=== PATIENT | female | born 1995 | race Caucasian/White ===

== ENCOUNTER 2018-01-28 11:22 | Inpatient (IN) | payer OTHER, MEDICAID ==
[2018-01-28] MEDS ORDERED: MISOPROSTOL 200 MCG TAB PR (12:30)
[2018-01-28] MEDS ORDERED: HYDROCODONE/APAP (5/325) TAB PO (12:30)
[2018-01-28] MEDS ORDERED: CARBOPROST 250 MCG INJ IM (12:30)
[2018-01-28] MEDS ORDERED: OXYTOCIN 30 UNITS/LR 500 ML IV (12:30)
[2018-01-28] MEDS ORDERED: IBUPROFEN 600 MG TAB PO (12:30)
[2018-01-28] MEDS ORDERED: METHYLERGONOVINE 0.2 MG INJ IM (12:30)
[2018-01-28] MEDS: LACTATED RINGER'S 1,000 ML IV ×2 (12:38→18:31)
[2018-01-28 13:13] LABS: ADD MAN DIFF? NO
[2018-01-28 13:17] LABS: WHITE BLOOD COUNT 7.6 10^3/ul (4.8-10.8)
[2018-01-28 13:17] LABS: ABNORMAL IP MESSAGE 1; BASOPHILS % 0.5 % (0.0-2.0); EOSINOPHILS % 0.3 % (0.0-7.0); HEMATOCRIT 35.1 % (37.0-47.0); HEMOGLOBIN 11.5 g/dl (12.0-16.0); LYMPHOCYTES # 1.6 10^3/ul (0.8-2.9); LYMPHOCYTES % 20.4 % (15.0-51.0); MEAN CORPUSCULAR HEMOGLOBIN 28.2 pg (29.0-33.0); MEAN CORPUSCULAR HGB CONC 32.8 g/dl (32.0-37.0); MEAN PLATELET VOLUME 13.4 fl (7.4-10.4); MONOCYTE # 0.6 10^3/ul (0.3-0.9); MONOCYTES % 8.4 % (0.0-11.0); NEUTROPHIL # 5.3 10^3/ul (1.6-7.5); NEUTROPHILS % 69.9 % (39.0-77.0); PLATELET COUNT 189 10^3/UL (140-415); RED BLOOD COUNT 4.08 10^6/ul (4.20-5.40); RED CELL DISTRIBUTION WIDTH 14.3 % (11.5-14.5)
[2018-01-28 13:21] LABS: POSITIVE DIFF @See below
[2018-01-28 13:45] LABS: INR 0.87; PROTIME 11.9 Sec (11.9-14.9); PT RATIO 0.9
[2018-01-28 13:46] LABS: PARTIAL THROMBOPLASTIN TIME 26.9 Sec (25.0-35.0)
[2018-01-28] MEDS: MISOPROSTOL 25 MCG CAPSULE PO ×3 (13:49→22:31)
[2018-01-28 14:07] LABS: HEPATITIS B SURFACE ANTIGEN NEGATIVE (NEGATIVE)
[2018-01-28 15:26] LABS: RAPID PLASMA REAGIN NONREACTIVE (NR)
[2018-01-29] MEDS: LACTATED RINGER'S 1,000 ML IV ×7 (00:53→23:35)
[2018-01-29] MEDS: MISOPROSTOL 25 MCG CAPSULE PO (02:46)
[2018-01-29] MEDS ORDERED: FENTAnyl 2MCG/ML-ROPIV 0.2% 100 ML (06:01)
[2018-01-29] MEDS ORDERED: EPHEDrine SULFATE 50 MG/5 ML SYG IV (06:30)
[2018-01-29] MEDS ORDERED: DIPHENHYDRAMINE 50 MG INJ IV (06:30)
[2018-01-29] MEDS ORDERED: NALOXONE (0.4 MG/ML) INJ IV (06:30)
[2018-01-29] MEDS ORDERED: ONDANSETRON 4 MG INJ IV (06:30)
[2018-01-29] MEDS: AMPICILLIN 2 GM/NS (PMX) 100 ML IV (07:46)
[2018-01-29] MEDS: OXYTOCIN 30 UNITS/LR 500 ML IV (09:56)
[2018-01-29] MEDS: AMPICILLIN 1 GM/NS (PMX) 50 ML IV ×5 (11:30→23:35)
[2018-01-29] MEDS: FENTAnyl 2MCG/ML-ROPIV 0.2% 100 ML BAG EPI (17:22)
[2018-01-29 23:26] LABS: ADD MAN DIFF? NO
[2018-01-29 23:34] LABS: ABNORMAL IP MESSAGE 1; BASOPHILS % 0.3 % (0.0-2.0); HEMATOCRIT 35.3 % (37.0-47.0); HEMOGLOBIN 11.6 g/dl (12.0-16.0); LYMPHOCYTES # 1.2 10^3/ul (0.8-2.9); LYMPHOCYTES % 7.6 % (15.0-51.0); MEAN CORPUSCULAR HEMOGLOBIN 28.3 pg (29.0-33.0); MEAN CORPUSCULAR HGB CONC 32.9 g/dl (32.0-37.0); MEAN CORPUSCULAR VOLUME 86.1 fl (82.0-101.0); MEAN PLATELET VOLUME 13.3 fl (7.4-10.4); MONOCYTE # 1.1 10^3/ul (0.3-0.9); MONOCYTES % 7.1 % (0.0-11.0); NEUTROPHIL # 13.5 10^3/ul (1.6-7.5); NEUTROPHILS % 84.2 % (39.0-77.0); PLATELET COUNT 168 10^3/UL (140-415); RED CELL DISTRIBUTION WIDTH 14.3 % (11.5-14.5)
[2018-01-29 23:44] LABS: POSITIVE DIFF @See below
[2018-01-29 23:54] LABS: ALANINE AMINOTRANSFERASE 20 IU/L (13-69); ALBUMIN 3.2 g/dl (3.3-4.9); ALBUMIN/GLOBULIN RATIO 1.06; ALKALINE PHOSPHATASE 225 IU/L (42-121); ANION GAP 16 (8-16); ASPARTATE AMINO TRANSFERASE 16 IU/L (15-46); BILIRUBIN,INDIRECT 0.2 mg/dl (0-1.1); BILIRUBIN,TOTAL 0.2 mg/dl (0.2-1.3); BLOOD UREA NITROGEN 6 mg/dl (7-20); CALCIUM 8.4 mg/dl (8.4-10.2); CARBON DIOXIDE 19 mmol/L (21-31); CHLORIDE 110 mmol/L (97-110); CREATININE 0.64 mg/dl (0.44-1.00); GLUCOSE 91 mg/dl (70-220); POTASSIUM 3.4 mmol/L (3.5-5.1); SODIUM 142 mmol/L (135-144); TOTAL PROTEIN 6.2 g/dl (6.1-8.1); URIC ACID 6.2 mg/dl (3.1-7.9)
[2018-01-29 23:57] LABS: ADD UMIC YES; UR ASCORBIC ACID NEGATIVE (NEGATIVE); UR BILIRUBIN (Dip) NEGATIVE (NEGATIVE); UR BLOOD (Dip) 3+ mg/dL (NEGATIVE); UR CLARITY CLEAR (CLEAR); UR COLOR YELLOW (YELLOW); UR GLUCOSE (Dip) NEGATIVE (NEGATIVE); UR KETONES (Dip) 1+ mg/dL (NEGATIVE); UR LEUKOCYTE ESTERASE (Dip) NEGATIVE Leu/ul (NEGATIVE); UR MUCUS FEW /HPF (NONE SEEN); UR NITRITE (Dip) NEGATIVE (NEGATIVE); UR RBC > 182 /HPF (0-5); UR SPECIFIC GRAVITY (Dip) 1.009 (1.003-1.030); UR TOTAL PROTEIN (Dip) 2+ mg/dl (NEGATIVE); UR UROBILINOGEN (Dip) NEGATIVE (NEGATIVE); UR WBC 11 /HPF (0-5)
[2018-01-30] MEDS: FENTAnyl 2MCG/ML-ROPIV 0.2% 100 ML BAG EPI (01:50)
[2018-01-30] MEDS: LACTATED RINGER'S 1,000 ML IV (02:09)
[2018-01-30] MEDS: ACETAMINOPHEN 325 MG TAB PO (02:49)
[2018-01-30] MEDS: OXYTOCIN 30 UNITS/LR 500 ML IV ×2 (02:54→03:02)
[2018-01-30] MEDS: LIDOCAINE 1% (MPF) 30 ML INJ INJ (03:07)
[2018-01-30] MEDS: GENTAMICIN 120 MG/NS (PMX) 100 ML IVPB (03:40)
[2018-01-30] MEDS ORDERED: MISOPROSTOL 200 MCG TAB PR (05:00)
[2018-01-30] MEDS ORDERED: ACETAMINOPHEN 325 MG TAB PO (05:00)
[2018-01-30] MEDS ORDERED: DIBUCAINE 1% 30 GM OINT PR (05:00)
[2018-01-30] MEDS ORDERED: CARBOPROST 250 MCG INJ IM (05:00)
[2018-01-30] MEDS ORDERED: OXYTOCIN 30 UNITS/LR 500 ML IV (05:00)
[2018-01-30] MEDS: BENZOCAINE 20% 56 ML SPRAY TOP (06:20)
[2018-01-30] MEDS: WITCH HAZEL/GLYCERIN PAD PR (06:20)
[2018-01-30] MEDS: IBUPROFEN 600 MG TAB PO ×4 (06:20→23:59)
[2018-01-30] MEDS: LANOLIN 7 GM TUBE TOP (06:20)
[2018-01-30] MEDS: AMPICILLIN/SULB 3 GM/NS (PMX) 100 ML IVPB ×4 (06:47→23:59)
[2018-01-30] MEDS: HYDROCODONE/APAP (5/325) TAB PO (08:42)
[2018-01-30] MEDS: SENNA/DOCUSATE NA (8.6MG/50MG) TAB PO ×2 (09:00→21:25)
[2018-01-30] MEDS: LACTATED RINGER'S 1,000 ML IV* ×2 (10:00→20:49)
[2018-01-31] MEDS: IBUPROFEN 600 MG TAB PO ×3 (05:43→18:00)
[2018-01-31] MEDS: AMPICILLIN/SULB 3 GM/NS (PMX) 100 ML IVPB ×3 (05:43→18:54)
[2018-01-31 08:00] LABS: ADD MAN DIFF? NO
[2018-01-31 08:02] LABS: WHITE BLOOD COUNT 14.2 10^3/ul (4.8-10.8)
[2018-01-31 08:02] LABS: BASOPHILS % 0.3 % (0.0-2.0); EOSINOPHILS # 0.1 10^3/ul (0.0-0.5); EOSINOPHILS % 0.6 % (0.0-7.0); HEMATOCRIT 24.9 % (37.0-47.0); HEMOGLOBIN 8.1 g/dl (12.0-16.0); LYMPHOCYTES # 1.8 10^3/ul (0.8-2.9); LYMPHOCYTES % 12.6 % (15.0-51.0); MEAN CORPUSCULAR HEMOGLOBIN 27.9 pg (29.0-33.0); MEAN CORPUSCULAR HGB CONC 32.5 g/dl (32.0-37.0); MEAN CORPUSCULAR VOLUME 85.9 fl (82.0-101.0); MEAN PLATELET VOLUME 12.4 fl (7.4-10.4); MONOCYTE # 0.9 10^3/ul (0.3-0.9); MONOCYTES % 6.6 % (0.0-11.0); NEUTROPHIL # 11.3 10^3/ul (1.6-7.5); NEUTROPHILS % 79.2 % (39.0-77.0); PLATELET COUNT 142 10^3/UL (140-415); RED CELL DISTRIBUTION WIDTH 14.7 % (11.5-14.5)
[2018-01-31] MEDS: INFLUENZA VIRUS VACCINE 0.5 ML (DISPENSING) IM* (09:00)
[2018-01-31] MEDS: SENNA/DOCUSATE NA (8.6MG/50MG) TAB PO ×2 (09:10→20:28)
[2018-01-31] MEDS: LACTATED RINGER'S 1,000 ML IV* ×3 (20:27→20:49)
[2018-02-01] MEDS: AMPICILLIN/SULB 3 GM/NS (PMX) 100 ML IVPB ×3 (00:20→12:09)
[2018-02-01] MEDS: IBUPROFEN 600 MG TAB PO ×3 (00:20→12:09)
[2018-02-01] MEDS: LACTATED RINGER'S 1,000 ML IV* (04:49)
[2018-02-01] MEDS: SENNA/DOCUSATE NA (8.6MG/50MG) TAB PO (08:53)
[2018-02-01 09:20] LABS: ADD MAN DIFF? NO
[2018-02-01 09:25] LABS: BASOPHILS % 0.3 % (0.0-2.0); EOSINOPHILS # 0.3 10^3/ul (0.0-0.5); EOSINOPHILS % 2.2 % (0.0-7.0); HEMATOCRIT 27.6 % (37.0-47.0); HEMOGLOBIN 9.2 g/dl (12.0-16.0); LYMPHOCYTES # 1.7 10^3/ul (0.8-2.9); LYMPHOCYTES % 15.1 % (15.0-51.0); MEAN CORPUSCULAR HEMOGLOBIN 29.1 pg (29.0-33.0); MEAN CORPUSCULAR HGB CONC 33.3 g/dl (32.0-37.0); MEAN CORPUSCULAR VOLUME 87.3 fl (82.0-101.0); MEAN PLATELET VOLUME 12.1 fl (7.4-10.4); MONOCYTE # 0.6 10^3/ul (0.3-0.9); MONOCYTES % 5.3 % (0.0-11.0); NEUTROPHIL # 8.6 10^3/ul (1.6-7.5); NEUTROPHILS % 76.3 % (39.0-77.0); PLATELET COUNT 197 10^3/UL (140-415); RED BLOOD COUNT 3.16 10^6/ul (4.20-5.40); RED CELL DISTRIBUTION WIDTH 14.5 % (11.5-14.5)
[2018-02-01 09:25] LABS: WHITE BLOOD COUNT 11.3 10^3/ul (4.8-10.8)
[2018-02-01] MEDS: HYDROCODONE/APAP (5/325) TAB PO (10:17)
[2018-02-01] MEDS: DIPHTH/TET/ACEL PERTUSS (ADULT) 0.5 ML VIAL IM* (12:11)
== END 2018-02-01 15:20 | disposition home or self-care (01) | DRG 775 ==
LOC: OBT 11:22 → PP1 01-30 04:58 → L-D 11:24 → OBT 12:04 → L-D 12:00
PROVIDERS: Obstetrics & Gynecology
PROC: 4A1HXCZ Monitoring of Products of Conception, Cardiac Rate, External Approach (ICD-10-PCS; 2018-01-28)
PROC: 3E0P7GC Introduction of Other Therapeutic Substance into Female Reproductive, Via Natural or Artificial Opening (ICD-10-PCS; 2018-01-28)
PROC: 10E0XZZ Delivery of Products of Conception, External Approach (ICD-10-PCS; principal; 2018-01-30)
PROC: 0DQR0ZZ Repair Anal Sphincter, Open Approach (ICD-10-PCS; 2018-01-30)
PROC: 3E0234Z Introduction of Serum, Toxoid and Vaccine into Muscle, Percutaneous Approach (ICD-10-PCS; 2018-02-01)
DX: O48.0 Post-term pregnancy (principal); O70.20 Third degree perineal laceration during delivery, unspecified; Z3A.40 40 weeks gestation of pregnancy; Z37.0 Single live birth; Z23 Encounter for immunization
CPT/HCPCS: 62319; 76815; 76818; 80053; 81001; 84560; 85025; 85610; 85730; 86592; 86900; 86901; 87040; 87070; 87086; 87340; 88307; 90715; 99464